=== PATIENT | male | born 1980 | race African-American/Black ===

== ENCOUNTER 2020-08-30 17:19 | Inpatient (IN) | payer BC ==
[~2020-08-30] VITALS: Ht 177.8 cm; Wt 123.0 kg
[2020-08-30 17:56] LABS: BASOPHILS ABSOLUTE AUTO 0.02 K/mm3 (0.00-0.23); BASOPHILS PERCENT AUTO 0 % (0-2); EOSINOPHILS ABSOLUTE AUTO 0.04 K/mm3 (0.00-0.68); EOSINOPHILS PERCENT AUTO 1 % (0-6); Hemoglobin 13.3 g/dL (13.5-17.5); IMMATURE GRAN ABSOLUTE AUTO 0.05 K/mm3 (0.00-0.10); IMMATURE GRAN PERCENT AUTO 1 % (0-1); LYMPHOCYTES ABSOLUTE AUTO 0.92 K/mm3 (0.84-5.20); LYMPHOCYTES PERCENT AUTO 12 % (21-46); MONOCYTES ABSOLUTE AUTO 0.34 K/mm3 (0.16-1.47); MONOCYTES PERCENT AUTO 5 % (4-13); Mean Corpuscular HGB 28.6 pg (26.0-34.0); Mean Corpuscular HGB Conc 33.3 g/dL (31.5-36.5); Mean Corpuscular Volume 86 fL (80-100); Mean Platelet Volume 9.3 fL (9.1-12.4); NEUTROPHILS ABSOLUTE AUTO 6.04 K/mm3 (1.96-9.15); NEUTROPHILS PERCENT AUTO 82 % (41-73); Platelet Count 319 K/mm3 (150-400); RDW Coefficient Variation 12.5 % (11.7-14.2); RDW Standard Deviation 39.5 fL (35.1-46.3); Red Blood Cell Count 4.65 M/mm3 (4.30-5.90); White Blood Cell Count 7.41 K/mm3 (4.00-11.30)
[2020-08-30 18:25] LABS: International Normalized Ratio 1.04; Prothrombin Time Results 11.2 Sec (9.7-11.5)
[2020-08-30 18:25] LABS: Alanine Aminotransfer (ALT/SGP 76 U/L (12-78); Albumin, Blood 3.1 g/dL (3.4-5.0); Albumin/Globulin Ratio 0.5 (0.8-1.8); Alk Phos 59 U/L (50-136); Anion Gap 6 mmol/L (6-16); Aspartate Aminotrans (AST/SGOT 79 U/L (12-37); Bilirubin, Total 0.3 mg/dL (0.1-1.0); Blood Urea Nitrogen 7 mg/dL (8-24); Bun/Creatinine Ratio 9.3 (12.0-20.0); CO2, Blood 29 mmol/L (21-32); Calcium, Blood 9.2 mg/dL (8.5-10.1); Chloride, Blood 100 mmol/L (98-108); Creatinine, Blood 0.75 mg/dL (0.60-1.20); Globulin, Blood 5.7 g/dL (2.2-4.0); Glomerular Filtration Rate >60 (60-); Glucose, Blood 119 mg/dL (70-99); Potassium, Blood 3.7 mmol/L (3.5-5.5); Sodium, Blood 135 mmol/L (136-145); Total Protein, Blood 8.8 g/dL (6.4-8.2)
[2020-08-30 18:33] LABS: Lactate Dehydrogenase (Ld),Bld 567 U/L (100-240)
[2020-08-30 18:56] LABS: C-Reactive Protein, High Sens. >190.000 mg/L (0.000-3.000)
[2020-08-30 19:11] LABS: Source, Urine Clean Catch
[2020-08-30 19:15] LABS: Appearance, Urine Clear (Clear); Bilirubin, Urine Neg (Neg); Blood, Urine 2+ (Neg); Color, Urine Amber (P-Yellow); Glucose Qualitative, Urine Neg (Neg); Ketones, Urine Neg (Neg); Leukocyte Esterase, Urine Neg (Neg); Nitrite, Urine Neg (Neg); Protein, Urine 3+ (Neg); Specific Gravity, Urine 1.015 (1.003-1.022); Urobilinogen, Urine NORM (Normal)
[2020-08-30 19:21] LABS: Red Blood Cells, Urine 0-2 /hpf (0-2)
[2020-08-30 19:22] LABS: Bacteria Many /hpf; Mucus Mod (0-Heavy); Squamous Epithelial Cells Few /hpf (Few)
[2020-08-30] MEDS ORDERED: Ventolin/Prove6.7 GM INH (19:51)
[2020-08-30] MEDS ORDERED: MONT10T PO (19:51)
[2020-08-30] MEDS ORDERED: PANTOPRAZOLE SO40 M2 PO (19:51)
[2020-08-30] MEDS ORDERED: ZYRTEC10 M2 PO (20:22)
--- NOTE | 2020-08-30 22:42 | NUR ---
ASSUMPTION OF CARE PATIENT ARRIVED TO ROOM VIA GURNEY AT 2100 ASSISTED BY ED RN. PATIENT STOOD AND TRANSFERRED TO BED. AIRVO AT 65% FIO2 WITH SATS 90-93%. DESATS TO 89% WITH ACTIVITY AND WHILE CONVERSING. PATIENT IS A/O, DENIES DISCOMFORTS. STATED SOB WHEN STANDING AT TOILET. RECOVERED QUICKLY ONCE BACK IN BED. IV NS INITIATED, EDUCATED PATIENT REGARDING THE IMPORTANCE OF PRONING. PATIENT VERBALIZED UNDERSTANDING. ORIENTED TO ROOM AND CALL LIGHT SYSTEM. WILL REVIEW ORDERS AND TREAT PRESCRIBED.
--- NOTE | 2020-08-31 00:10 | NUR ---
REASSESSMENT NO ACUTE CHANGES FROM PREVIOUS ASSESSMENT. ASSISTED PATIENT TO PRONE, PATIENT TOLERATING WELL. AIRVO SETTINGS 50L AND 55% WITH SATS ABOVE 90%. PATIENT AMBULATED TO TOILET TWICE SINCE ADMISSION, DESATS TO 85% BUT QUICKLY RECOVERS TO 90% ONCE BACK IN BED. ENCOURAGED PATIENT TO MAINTAIN THE PRONE POSITION FOR LONG TOLERATED. PATIENT VERBALIZED UNDERSTANDING. WILL CONTINUE TO MONITOR, CALL LIGHT IN REACH.
--- NOTE | 2020-08-31 01:25 | NUR ---
RESPIRATORY CHANGES WHILE PATIENT WAS PRONED PATIENT EXPERIENCED A SIGNIFICANT AMOUNT OF COUGHING. POSITIONED SELF TO BACK, DESAT TO 85% ON 50L AND 55% FIO2 AIRVO. RN TO ROOM, ELEVATED HEAD OF BED AND INCREASED FIO2 TO 65%, NOTIFIED ANSLEY RT. PATIENT CONTINUES WITH PRODUCTIVE COUGH. DISCUSSED REPRONING AT 0200 WITH PATIENT, PATIENT VERBALIZED UNDERSTANDING OF IMPORTANCE AND IS WILLING TO TRY AGAIN. ASHER CONTINUE TO MONITOR, CALL LIGHT IN REACH.
[2020-08-31 03:33] LABS: BASOPHILS ABSOLUTE AUTO 0.01 K/mm3 (0.00-0.23); BASOPHILS PERCENT AUTO 0 % (0-2); EOSINOPHILS PERCENT AUTO 0 % (0-6); Hematocrit 37.6 % (37.0-53.0); Hemoglobin 12.5 g/dL (13.5-17.5); IMMATURE GRAN ABSOLUTE AUTO 0.03 K/mm3 (0.00-0.10); IMMATURE GRAN PERCENT AUTO 1 % (0-1); LYMPHOCYTES ABSOLUTE AUTO 0.46 K/mm3 (0.84-5.20); LYMPHOCYTES PERCENT AUTO 9 % (21-46); MONOCYTES ABSOLUTE AUTO 0.22 K/mm3 (0.16-1.47); MONOCYTES PERCENT AUTO 4 % (4-13); Mean Corpuscular HGB 28.3 pg (26.0-34.0); Mean Corpuscular HGB Conc 33.2 g/dL (31.5-36.5); Mean Corpuscular Volume 85 fL (80-100); Mean Platelet Volume 9.1 fL (9.1-12.4); NEUTROPHILS ABSOLUTE AUTO 4.51 K/mm3 (1.96-9.15); NEUTROPHILS PERCENT AUTO 86 % (41-73); Platelet Count 332 K/mm3 (150-400); RDW Coefficient Variation 12.3 % (11.7-14.2); RDW Standard Deviation 38.3 fL (35.1-46.3); Red Blood Cell Count 4.41 M/mm3 (4.30-5.90); White Blood Cell Count 5.23 K/mm3 (4.00-11.30)
[2020-08-31 03:54] LABS: Alanine Aminotransfer (ALT/SGP 69 U/L (12-78); Albumin, Blood 2.9 g/dL (3.4-5.0); Albumin/Globulin Ratio 0.6 (0.8-1.8); Alk Phos 55 U/L (50-136); Anion Gap 6 mmol/L (6-16); Aspartate Aminotrans (AST/SGOT 61 U/L (12-37); Bilirubin, Total 0.3 mg/dL (0.1-1.0); Blood Urea Nitrogen 8 mg/dL (8-24); Bun/Creatinine Ratio 12.4 (12.0-20.0); CO2, Blood 27 mmol/L (21-32); Calcium, Blood 8.9 mg/dL (8.5-10.1); Chloride, Blood 100 mmol/L (98-108); Creatinine, Blood 0.65 mg/dL (0.60-1.20); Globulin, Blood 5.2 g/dL (2.2-4.0); Glomerular Filtration Rate >60 (60-); Glucose, Blood 158 mg/dL (70-99); Sodium, Blood 133 mmol/L (136-145); Total Protein, Blood 8.1 g/dL (6.4-8.2)
--- NOTE | 2020-08-31 04:00 | NUR ---
REASSESSMENT NO ACUTE CHANGES FROM PREVIOUS ASSESSMENT. PATIENT REMAINS PRONED ON 50L/70% AIRVO WITH SATS ABOVE 95%. PRODUCTIVE COUGH CONTINUES. DENIES NEEDS OR DISCOMFORTS. VITALS STABLE. CALL LIGHT IN REACH.
--- NOTE | 2020-08-31 06:18 | NUR ---
SHIFT SUMMARY PATIENT TOLERATED AIRVO AT 50L 70% FIO2 THROUGH NIGHT. MEDICATIONS GIVEN CHARTED WITH IVF INFUSING AT 75ML/HR ORDERED. PRODUCTIVE COUGH REMAINS, PATIENT CLEARING SECRETIONS AT THIS TIME. BEGAN PRONING AT 0200 AND CONTINUES TO PRONE WITH O2 SATS 90-95%. CALL LIGHT IN REACH, PATIENT CONTINUES TO DENY PAIN OR OTHER DISCOMFORTS. VISIBILY SHORT OF BREATH WITH EXERTION. CONTINUING TO MONITOR AND WILL REPORT TO ONCOMING RN.
--- NOTE | 2020-08-31 08:00 | NUR ---
PT IS A&0X4.DENIES PAIN. VS WDL. SOB AND INCREASED WOB NOTED WITH MINIMAL EXERTION. LUNGS DIMINISHED. MAINTAINS SATS>90% ON AIRVO 50 LITERS/FIO2 70% AT REST. SATS TO 80'S WITH EXERTION/COUGHING, BUT RECOVERY QUICKLY. COUGH IS DRY AND NONPRODUCTIVE AT THIS TIME. PT STATES THAT HE IS HUNGRY, OTHERWISE DENIES COMPLAINTS AT THIS TIME. CALL LIGHT WITHIN PT REACH.PT AGREES TO CALL FOR ASSISTANCE.
--- NOTE | 2020-08-31 10:22 | NUR ---
DR. HU IN TO SEE PT. REGULAR DIET INITIATED.
--- NOTE | 2020-08-31 10:50 | NUR ---
ADMIT: 08/30/20 DISCHARGE: TBD DX: PNEUMONIA DUE TO COVID 19 CC: Fletcher Hensley RESIDENCE: HOME - [address] [place]. [id number] CAREGIVER/CONTACT: JASEN (SPOUSE) LISTED IN [facility] PMH: HTN, GERD, CHRONIC RHINITIS, CHRONIC EXZEMA, BILATERAL ARTHRITIS OF KNEES DME: NONE CCM: NONE HOME HEALTH: NONE CARE COORDINATION REFERRAL AND NOTES ADDED TO [facility] EMR TO PROVIDE CONTINUITY OF CARE PCP/FAVIAN TEAM.
--- NOTE | 2020-08-31 12:00 | NUR ---
PT TOLERATING REGULAR DIET WELL. MAINTAINS SATS>90% ON 50L/FIO2 65%. PT DENIES COMPLAINTS.
--- NOTE | 2020-08-31 13:15 | NUR ---
PT GIVEN SPONGE BATH AND STOOD BY THE EDGE OF THE BED TO CHANGE HIS UNDERWEAR. PT RR 40'S VERY DYSPNEIC-SATS DOWN TO 85%. AFTER APROX. 5 MINUTES OF REST, SATS RETURNED TO >90% ON 50 LITERS/ FIO2 65%
--- NOTE | 2020-08-31 14:00 | NUR ---
PT ASSISTED OOB TO BRP-HE HAD A LARGE, BROWN, FORMED BM. THEN ASSITED UP TO CHAIR BY CAITLIN PEDRAZA. PT SOB WITH EXERTION AND SATS DOWN TO 89% ON AIRVO 50 LITERS/ FIO2 65%-SATS RETURNED TO >90% WITH A FEW MINUTES REST.
--- NOTE | 2020-08-31 16:00 | NUR ---
PT ASSISTED UP TO BRP. HE DID HAVE ONE UNMEASURED VOID, BUT NO BM THIS TIME. PT REQUESTED TO GET BACK INTO BED-PT REMAINS SOB, BUT SATS 89-91% ON AIRVO 50 LITERS/ FIO2 65% CALL LIGHT WITHIN PT REACH.
--- NOTE | 2020-08-31 16:10 | NUR ---
CARE COORDINATION REFERRAL - ADMIT: 08/30/20 DISCHARGE: TBD DX: PNEUMONIA DUE TO COVID 19 CC: Fletcher PETERSON RESIDENCE: HOME - [address] [facility] [place] [place]. [id number] CAREGIVER/CONTACT: JASEN (SPOUSE) LISTED IN [facility] PMH: HTN, GERD, CHRONIC RHINITIS, CHRONIC EXZEMA, BILATERAL ARTHRITIS OF KNEES DME: NONE CCM: NONE HOME HEALTH: NONE Care Coordination Referral and notes added to [facility] EMR to ensure continuity in care with PCP/FAVIAN team. UPDATE 08/31/20: SATS>90% ON 50L/FIO2 65%. PT. ON REMDESIVIR AND DECADRON IV. CURRENTLY IN ICU. PATIENT'S ALSO DIAGNOSED WITH COVID RECENTLY. WILL CONTACT HER IN THE AM TO DISCUSS CARE COORDINATION AND PROVIDE UPDATES INDICATED.
--- NOTE | 2020-08-31 18:31 | NUR ---
NO ACUTE CHANGES. APPETITE POOR, BUT PT TAKING IN PO LIQUIDS WELL. PT ATE 30% OF MEALS TODAY. PT CONTINUES TO BE SOB WITH EXERTION, BUT SEEMS TO DESATURATE LESS AND RECOVER MORE QUICKLY.
--- NOTE | 2020-08-31 19:11 | NUR ---
ASSUMPTION OF CARE RECEIVED REPORT FROM MARCELINO FLORES, ASSUMED CARE OF PATIENT. PATIENT A/O, UP IN BED WITH AIRVO 50L AND 65%. 02 SATS 90%. PATIENT WITH MOIST COUGH, NONPRODUCTIVE AT THIS TIME. DISCUSSED PLAN TO PRONE WHEN SLEEPING TONIGHT. PATIENT VERBALIZED UNDERSTANDING. WILL REVIEW ORDERS AND TREAT PRESCRIBED.
--- NOTE | 2020-09-01 00:04 | NUR ---
REASSESSMENT NO ACUTE CHANGES FROM PREVIOUS ASSESSMENT. AT 2300 PATIENT USED URINAL INDEPENDENTLY AND ATE SNACK, DESAT TO 89%. PATIENT RE-PRONED AT 2315, CURRENT SATS ABOVE 95%. VITALS STABLE. PATIENT STATES IS FEELING OKAY. WILL CONTINUE TO MONITOR, CALL LIGHT IN REACH.
--- NOTE | 2020-09-01 04:00 | NUR ---
REASSESSMENT NO ACUTE CHANGES FROM PREVIOUS ASSESSMENT. PATIENT REPOSITIONED SELF ON BACK FOR COMFORT. O2 SATS MAINTAINING ABOVE 90% AT THIS TIME WITH 50L/65% AIRVO IN PLACE. VITALS STABLE. DENIES NEEDS OR DISCOMFORTS. CALL LIGHT IN REACH.
--- NOTE | 2020-09-01 06:24 | NUR ---
SHIFT SUMMARY PATIENT ON 50L/65% FIO2 AT START OF SHIFT. BEGAN PRONING AROUND 2100. SATS ABOVE 95% WHILE PRONED. PATIENT TOLERATED WELL. AT 2300 PATIENT TOOK A BREAK FROM PRONING TO EAT A SNACK, AT 2315 PATIENT RE-PRONED, BEGAN HAVING PRODUCTIVE COUGH. PATIENT USED URINAL INDEPENDENTLY, TOLERATED WELL. MAINTAINED SATS DURING ACTIVITY. AT 0400 PATIENT RETURNED TO SUPINE POSITION AND REPOSITIONED SELF SIDE TO SIDE FOR COMFORT. RT DECREASED AIRVO SETTINGS TO 45L AND 55%, AT 0600 PATIENT WITH SIGNIFICANT AMOUNT OF COUGHING AND SECRETIONS. DESAT TO 87%, UNABLE TO RECOVER SATS. NOTIFIED OSMANY RT AND WAS INSTRUCTED TO INCREASE FIO2 BACK TO 65%. PATIENT CURRENTLY WITH 02 SATS OF 91%. CONTINUES WITH PRODUCTIVE COUGH. VITALS REMAIN STABLE. WILL CONTINUE TO MONITOR AND REPORT TO ONCOMING RN.
--- NOTE | 2020-09-01 08:00 | NUR ---
PT A&O X 4. DENIES PAIN. PT STATES THAT HE SLEPT WELL LAST NIGHT. AFEBRILE-VSS. LUNGS REMAIN DIMINISHED, BUT PT STATES THAT HE FEELS LIKE HE IS BREATHING BETTER TODAY AND THAT HE IS COUGHING UP A LARGE AMOUNT OF THICK, BLOOD TINGED SECRETIONS. SATS>90% ON 45LITERS/FIO2 65% NO GI DISTRESS.
[2020-09-01 13:05] LABS: BASOPHILS ABSOLUTE AUTO 0.02 K/mm3 (0.00-0.23); BASOPHILS PERCENT AUTO 0 % (0-2); EOSINOPHILS PERCENT AUTO 0 % (0-6); Hematocrit 41.2 % (37.0-53.0); Hemoglobin 13.4 g/dL (13.5-17.5); IMMATURE GRAN ABSOLUTE AUTO 0.11 K/mm3 (0.00-0.10); IMMATURE GRAN PERCENT AUTO 1 % (0-1); LYMPHOCYTES ABSOLUTE AUTO 0.71 K/mm3 (0.84-5.20); LYMPHOCYTES PERCENT AUTO 7 % (21-46); MONOCYTES ABSOLUTE AUTO 0.36 K/mm3 (0.16-1.47); MONOCYTES PERCENT AUTO 3 % (4-13); Mean Corpuscular HGB 28.3 pg (26.0-34.0); Mean Corpuscular HGB Conc 32.5 g/dL (31.5-36.5); Mean Corpuscular Volume 87 fL (80-100); Mean Platelet Volume 9.4 fL (9.1-12.4); NEUTROPHILS ABSOLUTE AUTO 9.64 K/mm3 (1.96-9.15); NEUTROPHILS PERCENT AUTO 89 % (41-73); Platelet Count 530 K/mm3 (150-400); RDW Coefficient Variation 12.2 % (11.7-14.2); RDW Standard Deviation 39.4 fL (35.1-46.3); Red Blood Cell Count 4.73 M/mm3 (4.30-5.90); White Blood Cell Count 10.84 K/mm3 (4.00-11.30)
[2020-09-01 13:27] LABS: Anion Gap 8 mmol/L (6-16); Blood Urea Nitrogen 16 mg/dL (8-24); Bun/Creatinine Ratio 21.7 (12.0-20.0); CO2, Blood 27 mmol/L (21-32); Chloride, Blood 102 mmol/L (98-108); Creatinine, Blood 0.74 mg/dL (0.60-1.20); Glomerular Filtration Rate >60 (60-); Glucose, Blood 171 mg/dL (70-99); Sodium, Blood 137 mmol/L (136-145)
--- NOTE | 2020-09-01 16:00 | NUR ---
ASSISTED PT WITH BRP-STANDBY FOR LINES AND TUBES. PT REMAINS DYSPNEIC WITH EXERTION, BUT MAINTAINS SATS 88-91% ON 45 LITERS/ FIO2 65% LUNGS ARE DIMINISHED-BETTER AIR EXCHANGE THAN PREVIOUS ASSESSMENT. ASSISTED PT WITH SPONGE BATH AND THE BACK TO BED. PT IN PRONE POSITION-SATS 94-96%
--- NOTE | 2020-09-01 18:16 | NUR ---
PT SLEPT IN PRONE POSITION FOR ABOUT 1 HOUR. CURRENTLY, SITTING UP IN BED EATING DINNER WITHOUT NOTED DISTRESS. SATS 91-94% ON AIRVO 45 LITERS/ FIO2 65%
--- NOTE | 2020-09-02 03:28 | NUR ---
PATIENT HAVING APNEIC BREATHING DURING REST THROUGHOUT NIGHT, TAQUERIA 54-58 WHILE ASLEEP OVER >60BPM WHEN AWAKE. PATIENT STARTED PRONING AROUND 0100.
[2020-09-02 05:17] LABS: BASOPHILS ABSOLUTE AUTO 0.02 K/mm3 (0.00-0.23); BASOPHILS PERCENT AUTO 0 % (0-2); EOSINOPHILS ABSOLUTE AUTO 0.02 K/mm3 (0.00-0.68); EOSINOPHILS PERCENT AUTO 0 % (0-6); Hematocrit 38.7 % (37.0-53.0); Hemoglobin 12.6 g/dL (13.5-17.5); IMMATURE GRAN ABSOLUTE AUTO 0.12 K/mm3 (0.00-0.10); IMMATURE GRAN PERCENT AUTO 2 % (0-1); LYMPHOCYTES PERCENT AUTO 12 % (21-46); MONOCYTES ABSOLUTE AUTO 0.54 K/mm3 (0.16-1.47); MONOCYTES PERCENT AUTO 7 % (4-13); Mean Corpuscular HGB 28.4 pg (26.0-34.0); Mean Corpuscular HGB Conc 32.6 g/dL (31.5-36.5); Mean Corpuscular Volume 87 fL (80-100); Mean Platelet Volume 9.4 fL (9.1-12.4); NEUTROPHILS ABSOLUTE AUTO 5.97 K/mm3 (1.96-9.15); NEUTROPHILS PERCENT AUTO 79 % (41-73); Platelet Count 498 K/mm3 (150-400); RDW Coefficient Variation 12.1 % (11.7-14.2); RDW Standard Deviation 38.9 fL (35.1-46.3); Red Blood Cell Count 4.43 M/mm3 (4.30-5.90); White Blood Cell Count 7.57 K/mm3 (4.00-11.30)
[2020-09-02 05:57] LABS: Alanine Aminotransfer (ALT/SGP 76 U/L (12-78); Albumin, Blood 2.7 g/dL (3.4-5.0); Albumin/Globulin Ratio 0.6 (0.8-1.8); Alk Phos 53 U/L (50-136); Anion Gap 5 mmol/L (6-16); Aspartate Aminotrans (AST/SGOT 37 U/L (12-37); Bilirubin, Total 0.3 mg/dL (0.1-1.0); Blood Urea Nitrogen 16 mg/dL (8-24); Bun/Creatinine Ratio 19.7 (12.0-20.0); CO2, Blood 29 mmol/L (21-32); Calcium, Blood 8.6 mg/dL (8.5-10.1); Chloride, Blood 103 mmol/L (98-108); Creatinine, Blood 0.81 mg/dL (0.60-1.20); Globulin, Blood 4.9 g/dL (2.2-4.0); Glomerular Filtration Rate >60 (60-); Glucose, Blood 114 mg/dL (70-99); Potassium, Blood 3.9 mmol/L (3.5-5.5); Sodium, Blood 137 mmol/L (136-145); Total Protein, Blood 7.6 g/dL (6.4-8.2)
--- NOTE | 2020-09-02 06:16 | NUR ---
THIS LN TOOK OVER CARE AT 1845, PATIENT IS ALERT AND ORIENTATED ABLE TO MAKE NEEDS KNOWN, CALL LIGHT WITHIN REACH, PATIENT IS CONTINENT OF BLADDER/BOWEL ABLE TO WALK STAND BY ASSIST TO TOLIET IN ROOM, PATIENT O2 NEEDS INCREASE WITH EXERTION AND 1-2 MINUTES RECOVERY TIME, NOTED DRY HACKING COUGH DURING RECOVERY. PATIENT IS ABLE TO PRONE SELF, FIO2 DECREASED FROM 65% TO 50%, 40L/MIN HFNC SATURATIONS WITH PRONING 98-99% AT REST IN SUPINE POSITION 94-96% SATURATIONS.
--- NOTE | 2020-09-02 17:51 | NUR ---
SHIFT SUMMARY; ASSUMED CARE FROM ICU FOR IN HOUSE TRANSFER. A/A/OX4, INDEPENDANT IN ROOM. 6L HIGH CHRIS 02 TO MAINTAIN SATS >92%. IN RECLINER AT BEDSIDE FOR MOST OF SHIFT, NO VISIBLE SHORTNESS OF BREATH. WILL CONTINUE TO MONITOR AND TREAT UNTIL CHANGE OF SHIFT.
--- NOTE | 2020-09-02 19:22 | NUR ---
ASSUMED CARE OF PATIENT, IN ISOLATION FOR COVID. WILL WEAR PAPR WHEN ENTERING ROOM. SEE [facility] SHIFT ASSESSMENR FOR FULL ASSESSMENT.
[2020-09-03 05:51] LABS: BASOPHILS ABSOLUTE AUTO 0.05 K/mm3 (0.00-0.23); BASOPHILS PERCENT AUTO 1 % (0-2); EOSINOPHILS ABSOLUTE AUTO 0.09 K/mm3 (0.00-0.68); EOSINOPHILS PERCENT AUTO 1 % (0-6); Hematocrit 38.1 % (37.0-53.0); Hemoglobin 12.4 g/dL (13.5-17.5); IMMATURE GRAN ABSOLUTE AUTO 0.43 K/mm3 (0.00-0.10); IMMATURE GRAN PERCENT AUTO 5 % (0-1); LYMPHOCYTES ABSOLUTE AUTO 1.53 K/mm3 (0.84-5.20); LYMPHOCYTES PERCENT AUTO 17 % (21-46); MONOCYTES PERCENT AUTO 8 % (4-13); Mean Corpuscular HGB 28.2 pg (26.0-34.0); Mean Corpuscular HGB Conc 32.5 g/dL (31.5-36.5); Mean Corpuscular Volume 87 fL (80-100); Mean Platelet Volume 9.1 fL (9.1-12.4); NEUTROPHILS ABSOLUTE AUTO 6.02 K/mm3 (1.96-9.15); NEUTROPHILS PERCENT AUTO 68 % (41-73); NRBC ABSOLUTE 0.02 K/mm3 (0.00-0.02); NRBC Auto 0.2 /100 WBC (0.0-0.2); Platelet Count 558 K/mm3 (150-400); RDW Standard Deviation 38.7 fL (35.1-46.3); Red Blood Cell Count 4.39 M/mm3 (4.30-5.90); White Blood Cell Count 8.82 K/mm3 (4.00-11.30)
[2020-09-03 06:25] LABS: Alanine Aminotransfer (ALT/SGP 89 U/L (12-78); Albumin, Blood 2.8 g/dL (3.4-5.0); Albumin/Globulin Ratio 0.6 (0.8-1.8); Alk Phos 58 U/L (50-136); Anion Gap 4 mmol/L (6-16); Aspartate Aminotrans (AST/SGOT 40 U/L (12-37); Bilirubin, Total 0.2 mg/dL (0.1-1.0); Blood Urea Nitrogen 13 mg/dL (8-24); Bun/Creatinine Ratio 14.6 (12.0-20.0); CO2, Blood 31 mmol/L (21-32); Calcium, Blood 8.5 mg/dL (8.5-10.1); Chloride, Blood 103 mmol/L (98-108); Creatinine, Blood 0.89 mg/dL (0.60-1.20); Globulin, Blood 4.5 g/dL (2.2-4.0); Glomerular Filtration Rate >60 (60-); Glucose, Blood 106 mg/dL (70-99); Potassium, Blood 4.3 mmol/L (3.5-5.5); Sodium, Blood 138 mmol/L (136-145); Total Protein, Blood 7.3 g/dL (6.4-8.2)
--- NOTE | 2020-09-03 17:05 | NUR ---
Update 09/03/20: Spoke with patients Harriett this am. Thought pt. is not yet stable for discharge, we began discussing discharge planning. Harriett denied concerns with safety or barriers to mobility within the home. Pt. has a recliner that will allow him to sit up while resting. When ready for discharge patient's will be providing transportation and picking up his prescriptions. Preferred pharmacy [facility] on [address]. Harriett denied any other questions or concerns at this time. If Oxygen is ordered at time of discharge, Harriett is requesting [facility].
--- NOTE | 2020-09-03 18:41 | NUR ---
SHIFT SUMMARY PT ALERT AND ORIENTED X 4. IND IN ROOM. OXYGEN SATURATION MAINTAINED ABOVE 92% ON 4 L OF OXYGEN VIA HIGH FLOW NC. HR STABLE. BP STABLE. NO CP OR PRESSURE. WILL CONT TO MONITOR UNTIL REPORT GIVN TO NIGHTSHIFT RN.
[2020-09-04 05:27] LABS: Hematocrit 37.4 % (37.0-53.0); Hemoglobin 12.5 g/dL (13.5-17.5); Mean Corpuscular HGB 28.6 pg (26.0-34.0); Mean Corpuscular HGB Conc 33.4 g/dL (31.5-36.5); Mean Corpuscular Volume 86 fL (80-100); Mean Platelet Volume 9.1 fL (9.1-12.4); Platelet Count 598 K/mm3 (150-400); RDW Standard Deviation 37.9 fL (35.1-46.3); Red Blood Cell Count 4.37 M/mm3 (4.30-5.90); White Blood Cell Count 11.53 K/mm3 (4.00-11.30)
[2020-09-04 05:45] LABS: BAND PERCENT MAN 1 % (0-8); BASOPHILS PERCENT MAN 0 % (0-2); EOSINOPHILS ABSOLUTE MAN 0.23 K/mm3 (0.00-0.68); EOSINOPHILS PERCENT MAN 2 % (0-6); LYMPHOCYTES ABSOLUTE MAN 1.26 K/mm3 (0.84-5.20); LYMPHOCYTES PERCENT MAN 11 % (21-46); METAMYELOCYTE ABSOLUTE MAN 0.23 K/mm3 (0.00-0.00); METAMYELOCYTE PERCENT MAN 2 % (0-0); MONOCYTES ABSOLUTE MAN 0.23 K/mm3 (0.16-1.47); MONOCYTES PERCENT MAN 2 % (4-13); MYELOCYTE ABSOLUTE MAN 0.23 K/mm3 (0.00-0.00); MYELOCYTE PERCENT MAN 2 % (0-0); NEUTROPHILS ABSOLUTE MAN 9.33 K/mm3 (1.96-9.15); SEG NEUTROPHILS PERCENT MAN 80 % (41-73); TOTAL CELLS COUNTED 100
[2020-09-04 05:46] LABS: Alanine Aminotransfer (ALT/SGP 109 U/L (12-78); Albumin, Blood 2.8 g/dL (3.4-5.0); Albumin/Globulin Ratio 0.6 (0.8-1.8); Alk Phos 60 U/L (50-136); Anion Gap 5 mmol/L (6-16); Aspartate Aminotrans (AST/SGOT 39 U/L (12-37); Bilirubin, Total 0.2 mg/dL (0.1-1.0); Blood Urea Nitrogen 13 mg/dL (8-24); Bun/Creatinine Ratio 17.8 (12.0-20.0); CO2, Blood 30 mmol/L (21-32); Calcium, Blood 8.8 mg/dL (8.5-10.1); Chloride, Blood 102 mmol/L (98-108); Creatinine, Blood 0.73 mg/dL (0.60-1.20); Globulin, Blood 4.5 g/dL (2.2-4.0); Glomerular Filtration Rate >60 (60-); Glucose, Blood 114 mg/dL (70-99); Potassium, Blood 4.5 mmol/L (3.5-5.5); Sodium, Blood 137 mmol/L (136-145); Total Protein, Blood 7.3 g/dL (6.4-8.2)
--- NOTE | 2020-09-04 06:28 | NUR ---
SHIFT SUMMARY PATIENT FOUND TO BE A PLESANT MAN WHO IS A&OX4. ABLE TO WEAN O2 DOWN FROM 3L TO 1L OVERNIGHT. DID WELL WITH PRONONG MOST OF NIGHT. STILL WITH PRODUCTIVE COUGH AND NANCE BUT IMPROVING PER PATIENT REPORT. NSR IN THE 70'S ON THE MONITOR. SOME INTERCOSTAL PAIN WITH GOOD RELIEF USING CODIENE COUGH SYPRUP. UP IND IN ROOM. NO ISSUES VOIDING OR EATING. PATIENT REALLY HOPING TO GO HOME TODAY. NO ACUTE CONCERNS AT THIS TIME. WILL CONTINUE TO MONITOR UNTIL REPORT GIVEN TO GIO FLORES.
--- NOTE | 2020-09-04 14:20 | NUR ---
OFF OXYGEN. WILL MONITOR. SAT MACHINE OUTSIDE DOOR. 92% W/HEART RATE 76
--- NOTE | 2020-09-04 18:02 | NUR ---
ALERT . ORIENTED. HAS BEEN INDEPENDENT IN ROOM. TELE ON. SR AT 90. SATS ABOVE 90 OFF OXYGEN. UNLABORED RESPIRATIONS. NO ACUTE CHANGES. POSSIBLE D'C TOMORROW. WCTM
[2020-09-05 06:19] LABS: Hematocrit 37.4 % (37.0-53.0); Hemoglobin 12.5 g/dL (13.5-17.5); Mean Corpuscular HGB 28.7 pg (26.0-34.0); Mean Corpuscular HGB Conc 33.4 g/dL (31.5-36.5); Mean Corpuscular Volume 86 fL (80-100); Platelet Count 606 K/mm3 (150-400); RDW Coefficient Variation 12.2 % (11.7-14.2); RDW Standard Deviation 38.2 fL (35.1-46.3); Red Blood Cell Count 4.36 M/mm3 (4.30-5.90); White Blood Cell Count 13.09 K/mm3 (4.00-11.30)
--- NOTE | 2020-09-05 06:31 | NUR ---
SHIFT SUMMARY PT AOX4. INDEPENDENT IN ROOM. NO ACUTE CHANGES OVERNIGHT. VSS. PT DENIES CHEST PAIN AND SOB. SATURATING AT 90-94% AT ROOM AIR. TELE ON SR AT 70'S. TOLERATING PO INTAKE, DENIES NAUSEA AND VOMITING. PT SLEEPING COMFOTABLY IN BED. CALL LIGHT WITHIN REACH. WILL PROVIDE REPORT TO ONCOMING NURSE. ANTICIPATING FOR POSSIBLE DISCHARGE TODAY.
[2020-09-05 06:43] LABS: Alanine Aminotransfer (ALT/SGP 98 U/L (12-78); Albumin, Blood 2.8 g/dL (3.4-5.0); Albumin/Globulin Ratio 0.7 (0.8-1.8); Alk Phos 60 U/L (50-136); Anion Gap 5 mmol/L (6-16); Aspartate Aminotrans (AST/SGOT 23 U/L (12-37); Bilirubin, Total 0.2 mg/dL (0.1-1.0); Blood Urea Nitrogen 13 mg/dL (8-24); Bun/Creatinine Ratio 21.5 (12.0-20.0); CO2, Blood 29 mmol/L (21-32); Calcium, Blood 8.7 mg/dL (8.5-10.1); Chloride, Blood 104 mmol/L (98-108); Creatinine, Blood 0.61 mg/dL (0.60-1.20); Globulin, Blood 4.1 g/dL (2.2-4.0); Glomerular Filtration Rate >60 (60-); Glucose, Blood 122 mg/dL (70-99); Sodium, Blood 138 mmol/L (136-145); Total Protein, Blood 6.9 g/dL (6.4-8.2)
[2020-09-05 07:06] LABS: BAND PERCENT MAN 1 % (0-8); BASOPHILS PERCENT MAN 0 % (0-2); EOSINOPHILS ABSOLUTE MAN 0.13 K/mm3 (0.00-0.68); EOSINOPHILS PERCENT MAN 1 % (0-6); LYMPHOCYTES ABSOLUTE MAN 0.65 K/mm3 (0.84-5.20); LYMPHOCYTES PERCENT MAN 5 % (21-46); METAMYELOCYTE ABSOLUTE MAN 0.39 K/mm3 (0.00-0.00); METAMYELOCYTE PERCENT MAN 3 % (0-0); MONOCYTES ABSOLUTE MAN 0.39 K/mm3 (0.16-1.47); MONOCYTES PERCENT MAN 3 % (4-13); MYELOCYTE ABSOLUTE MAN 0.26 K/mm3 (0.00-0.00); MYELOCYTE PERCENT MAN 2 % (0-0); NEUTROPHILS ABSOLUTE MAN 11.25 K/mm3 (1.96-9.15); SEG NEUTROPHILS PERCENT MAN 85 % (41-73); TOTAL CELLS COUNTED 100
[2020-09-05] MEDS ORDERED: CODEINE-GUAIFE120 M1 PO (11:01)
[2020-09-05] MEDS ORDERED: Flovent Disku100 MCG INH (11:02)
--- NOTE | 2020-09-05 13:10 | NUR ---
DISCHARGE SUMMARY PATIENT ALERT AND ORIENTED THROUGHOUT SHIFT. TOLERATING REGULAR DIET AND FLUIDS. LUNG SOUNDS CLEAR. SATTING WELL ON RA. HOME O2 EVAL COMPLETED AND NO NEED FOR HOME O2. DISCHARGE EDUCATION GIVEN ON QUARANTINE, NEW RXS, ACTIVITY LEVEL, AND FOLLOW UP APPOINTMENTS. EXTENDED DWELL CATHETER DC'D WNL. PT LEFT UNIT VIA WHEELCHAIR AT 1255 FOR HOME.
--- NOTE | 2020-09-06 09:13 | NUR ---
Update 09/06/20: Per discharge summary from Dr. Ezra De La Paz he was able to be weaned completely off of supplemental oxygen and by the time of discharge he passed his ambulatory [id number]. He was discharged and instructed to continue quarantine for 14 daysfrom the time of positive COVID testing.Return to ER if experiencing chest pain, SOB, fevers >101, pain not controlledby pain medications, nausea/vomiting, syncope, dizziness SCHEDULED FOLLOW UP APPOINTMENTS:PCP in 7-10 days DISCHARGE MEDICATIONS - albuterol sulfate HFAA 90 mcg/actuation (Proair HFA Inhaler) 2 PUFFInhalation Q6H PRN breathing - cetirizine tab (Zyrtec) 10 MG PO BEDTIME - codeine-guaifenesin liquid 10-100 mg/5 mL (Iophen C-NR) 5ML PO Q4H PRNcough, Disp: 200 Milliliter, Refills: 0 - fluticasone (Flovent Diskus 100 mcg/actuation powder for inhalation) 100MCG Inhalation Daily, Disp: 1 Each, Refills: 0 - montelukast tablet 10 MG PO BEDTIME - pantoprazole DR tab (Protonix) 40 MG PO Daily before Breakfast PRN heartburn
== END 2020-09-05 12:59 | disposition home or self-care (01) | DRG 177 ==
LOC: ER 17:19 → ERHOLD 20:17 → ICUE 20:17 → PCU 09-02 09:53
PROVIDERS: Family Medicine; Student in an Organized Health Care Education/Training Program; ADMIT Internal Medicine
PROC: 8E0ZXY6 Isolation (ICD-10-PCS; principal; 2020-08-30)
PROC: 3E0333Z Introduction of Anti-inflammatory into Peripheral Vein, Percutaneous Approach (ICD-10-PCS; 2020-08-30)
PROC: XW033E5 Introduction of Remdesivir Anti-infective into Peripheral Vein, Percutaneous Approach, New Technology Group 5 (ICD-10-PCS; 2020-08-30)
PROC: 5A0945A Assistance with Respiratory Ventilation, 24-96 Consecutive Hours, High Flow/Velocity Cannula (ICD-10-PCS; 2020-08-30)
DX: U07.1 COVID-19 (principal); J12.82 Pneumonia due to coronavirus disease 2019; J96.01 Acute respiratory failure with hypoxia; D68.9 Coagulation defect, unspecified; J30.9 Allergic rhinitis, unspecified; F17.210 Nicotine dependence, cigarettes, uncomplicated; Z86.010 Personal history of colon polyps; Z79.899 Other long term (current) drug therapy
CPT/HCPCS: 36415; 71045; 80048; 80053; 81001; 83605; 83615; 85025; 85610; 86141; 87040; 87086; 93005; 93010; 94761; 94762; 96374; 99285-25; A9270; C1751; J1100; J1650; J7030; J7050